=== PATIENT | female | born 1970 | race African-American/Black ===

== ENCOUNTER 2023-03-19 20:52 | Emergency (ER) | payer SELFPAY ==
[2023-03-19] MEDS ORDERED: Ketorolac Tromethamine 60 MG/2 ML VIAL ONE (21:06)
== END 2023-03-19 21:33 | disposition home or self-care (01) ==
LOC: BURERS 20:52
DX: S20.212A Contusion of left front wall of thorax, initial encounter (principal); E11.9 Type 2 diabetes mellitus without complications; I10 Essential (primary) hypertension; F17.210 Nicotine dependence, cigarettes, uncomplicated; W19.XXXA Unspecified fall, initial encounter
CPT/HCPCS: 96372; J1885